=== PATIENT | female | born 1975 | race Two or more races ===

== ENCOUNTER 2018-09-22 09:21 | Inpatient (IN) | payer MEDICAID ==
[2018-09-15 12:27] LABS: APPEARANCE,URINE CLEAR; BILIRUBIN, URINE NEGATIVE (NEGATIVE); COLOR,URINE PALE YELLOW; GLUCOSE, URINE (UA) NEGATIVE (NEGATIVE); KETONES,URINE NEGATIVE (NEGATIVE); LEUKOCYTE ESTERASE ,URINE NEGATIVE (NEGATIVE); NITRITE,URINE NEGATIVE (NEGATIVE); PH,URINE 6 (4.5-8.0); PROTEIN,URINE NEGATIVE (NEGATIVE); UROBILINOGEN,URINE NORMAL MG/DL (0.0-1.0)
[2018-09-15 12:34] LABS: BASOPHILS % (AUTO) 0.7 % (0.0-2.0); EOSINOPHILS % (AUTO) 0.5 % (0.0-3.0); HEMATOCRIT 44.5 % (37.0-47.0); HEMOGLOBIN 14.9 G/DL (12.0-16.0); LYMPHOCYTES % (AUTO) 29.6 % (20.0-45.0); MEAN CORPUSCULAR VOLUME 82 FL (80-99); MONOCYTES % (AUTO) 4.1 % (1.0-10.0); NEUTROPHILS % (AUTO) 65.1 % (45.0-75.0); PLATELET COUNT 239 K/UL (150-450); RED BLOOD COUNT 5.43 M/UL (4.20-5.40); RED CELL DISTRIBUTION WIDTH 11.6 % (11.6-14.8); WHITE BLOOD COUNT 11.5 K/UL (4.8-10.8)
[2018-09-15 12:45] LABS: ANION GAP 7 mmol/L (5-15); BLOOD UREA NITROGEN 10 mg/dL (7-18); CALCIUM 9.6 MG/DL (8.5-10.1); CARBON DIOXIDE 28 MMOL/L (21-32); CHLORIDE 103 MMOL/L (98-107); CREATININE 0.6 MG/DL (0.55-1.30); SODIUM 138 MMOL/L (136-145)
--- NOTE | 2018-09-16 16:11 | Cardiology Report ---
APPROVED REPORT EKG Measurement Heart [id number] Normal sinus rhythm Normal ECG
--- NOTE | 2018-09-19 20:15 | Pre-op HX & Phy Repo 2 SIG ---
SCHEDULED FOR SURGERY: 09/22/2018. HISTORY OF PRESENT ILLNESS: The patient is a 43-year-old female in overall good health with invasive ductal carcinoma of the left breast. The patient presented recently for screening mammography, which revealed a suspicious mass of the left breast at 12 o'clock 7 cm from the nipple measuring 1.6 x 1.5 x 1.0 cm. It was not palpable. Core biopsy revealed invasive ductal carcinoma. The patient was seen by Oncology, who recommended no preoperative therapy. She is estrogen receptor and progesterone receptor positive and HER2 negative. The patient is scheduled to undergo left breast partial mastectomy with preop needle localization and left axillary lymph node biopsy. PAST MEDICAL HISTORY: None. MEDICATIONS: None. ALLERGIES: None. OPERATIONS: None. REVIEW OF SYSTEMS: Para 4, 4. PHYSICAL EXAMINATION: VITAL SIGNS: The patient is 5 feet 5 inches and 147 pounds. HEENT: Within normal limits. LUNGS: Clear. HEART: Regular rhythm. BREASTS: Reveals a questionable palpable mass in the left breast at 12 o'clock near the periphery. There is no palpable axillary or supraclavicular lymphadenopathy. ABDOMEN: Soft. PELVIC AND RECTAL: Per primary care physician. EXTREMITIES: Without edema. NEUROLOGIC: Physiologic. IMPRESSION: Invasive ductal carcinoma, left breast. PLAN: The patient is scheduled to undergo left breast partial mastectomy with preoperative needle localization and left axillary lymph node biopsy and I have had a full discussion with her regarding the nature of her condition, the nature of the surgery, indications, alternatives, options, and risks. I have discussed the risks of bleeding, infection, injury to adjacent structures or organs, need for additional procedures based on final pathology, need for additional treatment including radiation therapy to the breast and possible chemotherapy. I have discussed the potential for distortion and scarring of the breast and all questions have been answered. She understands and agrees to proceed. Sd aOtes M.D. DR: DYLAN JOB#: [id number] CC: NADEEM
[~2018-09-22] VITALS: Ht 157.5 cm; Wt 65.8 kg
[2018-09-22] VITALS (15 sets, daily range): BP systolic 109–128; BP diastolic 64–77
[~2018-09-22 09:21] MED LIST: NKM
--- NOTE | 2018-09-22 10:28 | Pre-Procedure Note/Attestation ---
Pre-Procedure Note/Attestation Complete Prior to Procedure Planned Procedure: left - left br Procedure Narrative: left breast partial mastectomy with pre-op needle localization and left axillary lymph node biopsy Indications for Procedure Pre-Operative Diagnosis: invasive ductal carcinoma left breast Attestation I attest that I discussed the nature of the procedure; its benefits; risks and complications; and alternatives (and the risks and benefits of such alternatives ), prior to the procedure, with the patient (or the patient's legal patient support representative). I attest that, if there was a reasonable possibility of needing a blood transfusion, the patient (or the patient's legal patient support representative) was given the [facility] standardized written summary, pursuant to the [place] Blood Safety Act ([place] Health and Safety Code # 1645, as amended). I attest that I re-evaluated the patient just prior to the surgery and that there has been no change in the patient's H&P, except as documented below:none Sd Oates MD Sep 22, 2018 10:28
[2018-09-22] MEDS ORDERED: Bacitracin 50000 Units Vial ONE (10:48)
[2018-09-22] MEDS ORDERED: Bupivacaine w/Epi 0.5% 30ml Vial INJ ONE (10:48)
[2018-09-22] MEDS ORDERED: Bacitracin Oint 15gm Tube TOPIC ONE (10:48)
[2018-09-22] MEDS ORDERED: Lidocaine 1% 10mg/ml/EPI 0.01mg/ml 50ml INJ ONE (10:48)
[2018-09-22] MEDS ORDERED: Propofol 200mg/20ml IV ONE (10:51)
[2018-09-22] MEDS ORDERED: fentaNYL 100 mcg/2 mL IV ONE (10:51)
[2018-09-22] MEDS ORDERED: Ketorolac 30mg Inj ONE (10:51)
[2018-09-22] MEDS ORDERED: Lidocaine 1% MPF 10mg/ml 5ml ONE (10:51)
[2018-09-22] MEDS ORDERED: Midazolam 2mg/2ml Inj ONE (10:51)
[2018-09-22] MEDS ORDERED: Metoclopramide 10mg/2ml Inj ONE (10:51)
[2018-09-22] MEDS ORDERED: Dexamethasone 4mg/ml vial ONE (10:51)
[2018-09-22] MEDS ORDERED: Sterile Water Irrig 1000ml IRRIG ONE (11:00)
[2018-09-22] MEDS ORDERED: NS Irrig 1000ml ONE (11:00)
[2018-09-22] MEDS ORDERED: LR 1000ml ONE (11:00)
[2018-09-22] MEDS ORDERED: LORazepam Inj 2mg/ml 1ml IV PRN (11:45)
[2018-09-22] MEDS ORDERED: Ketorolac 30mg Inj IV PRN (11:45)
[2018-09-22] MEDS ORDERED: DiphenhydrAMINE 50mg/ml Inj IVP PRN (11:45)
[2018-09-22] MEDS ORDERED: LR 1000ml 1,000 ML IVLG SCH (11:45)
[2018-09-22] MEDS ORDERED: Hydromorphone 0.5mg/0.5ml inj IVP PRN (11:45)
[2018-09-22] MEDS ORDERED: fentaNYL 100 mcg/2 mL IV PRN (11:45)
[2018-09-22] MEDS ORDERED: Midazolam 2mg/2ml Inj IVP PRN (11:45)
[2018-09-22] MEDS ORDERED: Metoclopramide 10mg/2ml Inj IVP PRN (11:45)
--- NOTE | 2018-09-22 11:45 | Anethesia Preoperative Eval ---
Anesthesia Pre-op PMH/ROS General Date of Evaluation: Sep 22, 2018 Anesthesiologist: Fazal ASA Score: ASA 3 Mallampati Score Class I : Soft palate, uvula, fauces, pillars visible Class II: Soft palate, uvula, fauces visible Class III: Soft palate, base of uvula visible Class IV: Only hard plate visible Mallampati Classification: Class II Surgeon: Иван Diagnosis: Left breast cancer Surgical Procedure: Left breast partial mastectomy, with lymph node biopsy Anesthesia History: none Family History: no anesthesia problems Allergies: Coded Allergies: No Known Allergies (Unverified , 09/21/18) Medications: see eMAR Patient NPO?: Yes NPO Date: Sep 21, 2018 NPO Time: 1900 Past Medical History Cardiovascular: Reports: other - HLD; Denies: HTN, CAD, [place], valve dz, arrhythmia Pulmonary: Denies: asthma, COPD, OSEI, other Gastrointestinal/Genitourinary: Denies: GERD, CRI, ESRD, other Neurologic/Psychiatric: Denies: dementia, CVA, depression/anxiety, TIA, other Endocrine: Denies: DM, hypothyroidism, steroids, other HEENT: Denies: cataract (L), cataract (R), glaucoma, [place] (L), [place] (R), other Hematology/Immune: Reports: other - LEft breast cancer; Denies: anemia, DVT, bleeding disorder Musculoskeletal/Integumentary: Denies: OA, RA, DJD, DDD, edema, other PSxH Narrative: bladder tumor excision Anesthesia Pre-op Phys. Exam Physician Exam Last Vital Signs Date Time Temp Pulse Resp B/P (MAP) Pulse Ox O2 Delivery O2 Flow Rate FiO2 09/22/18 10:03 Room Air 09/22/18 09:52 97.0 60 18 120/74 (89) 100 Constitutional: NAD Cardiovascular: RRR Respiratory: CTA Airway Exam Mallampati Score: Class II MO: full ROM: full Teeth: missing, intact Dentures: upper - partial Anesthesia Pre-op A/P Labs see chart Urine Test Test 09/22/18 09:35 Urine HCG, Qualitative Negative (NEGATIVE) Studies Pre-op Studies: EKG - sr Risk Assessment & Plan Assessment: ASA III Plan: GA Status Change Before Surgery: No Pre-Antibiotics Drug: Ancef 1g Given Within 1 Hr of Incision: Yes Mary Jennings MD Sep 22, 2018 11:45
[2018-09-22] MEDS ORDERED: NS Irrig 1000ml IRRIG ONE (12:00)
--- NOTE | 2018-09-22 13:02 | Brief Operative Note ---
Immediate Post Operative Note Operative Note Pre-op Diagnosis: invasive ductal carcinoma left breast Procedure: left breast partial mastectomy and left axillary lymph node biopsy Post-op Diagnosis: same Post-op Diagnosis: same as pre-op Findings: consistent w/pre-op dx studies Surgeon: jose Anesthesiologist: jason Anesthesia: general Specimen: yes - left breast cancer; left axillary lymph nodes Complications: none Condition: stable Fluids: see anesthesia record Estimated Blood Loss: minimal Drains: TIFFANIE Implant(s) used?: No Sd Oates MD Sep 22, 2018 13:02
--- NOTE | 2018-09-22 13:06 | Immediate Post-Op Evaluation ---
Immediate Post-Op Evalulation Immediate Post-Op Evalulation Procedure: Left breast partial mastectomy and lymph node biopsy Date of Evaluation: Sep 22, 2018 Time of Evaluation: 13:07 IV Fluids: 900 Blood Products: 0 Estimated Blood Loss: min Urinary Output: 0 Blood Pressure Systolic: 111 Blood Pressure Diastolic: 73 Pulse Rate: 81 Respiratory Rate: 16 O2 Sat by Pulse Oximetry: 100 Temperature (Fahrenheit): 97.4 Pain Score (1-10): 0 Nausea: No Vomiting: No Complications 0 Patient Status: awake, reacts, patent, none Hydration Status: adequate Drug: Ancef 1g Given Within 1 Hr of Incision: Yes Time Given: 11:20 Mary Jennings MD Sep 22, 2018 13:06
[2018-09-22] MEDS ORDERED: Norco 5mg/325mg tab ORAL PRN (13:15)
[2018-09-22] MEDS: HYDROmorphone 1mg/ml Carpuject SUBQ PRN (15:34)
[2018-09-22] MEDS ORDERED: ceFAZolin sod 1 GM in D5W 55 ML IV SCH (17:00)
[2018-09-22] MEDS: D5 1/2NS w/KCl 20mEq 1,000 ML IV SCH (17:25)
--- NOTE | 2018-09-22 19:15 | Operative Note - Dictated ---
DATE OF OPERATION: 09/22/2018 SURGEON: Sd Oates M.D. SENIOR ENGINEER: None. ANESTHESIOLOGIST: Dr. Diehl. TYPE OF ANESTHESIA: General endotracheal. PREOPERATIVE DIAGNOSIS: Invasive ductal carcinoma, left breast. POSTOPERATIVE DIAGNOSIS: Invasive ductal carcinoma, left breast. OPERATION PERFORMED: Left breast partial mastectomy with preoperative needle localization and left axillary lymph node biopsy. DESCRIPTION OF PROCEDURE: The patient was taken to the operating room and under general anesthesia with sequential compression device stockings in place, she was prepped and draped in usual fashion. The lesion was located at 12 o'clock, approximately 7 cm from the nipple in the left breast. It was vaguely palpable, but the wire localization had been performed for certainty. A transverse curvilinear upper breast incision was made achieving hemostasis with cautery. Flaps were dissected circumferentially. The quadrant of breast tissue was resected down to the pectoralis fascia achieving hemostasis with cautery and orienting the specimen with suture markers anterior, superior, and medial. Pathology examination revealed that the posterior deep margin was closed and additional tissue was excised. Hemostasis was achieved with cautery. The field was irrigated with antibiotic solution. The incision was closed with interrupted inverted 3-0 Vicryl deep dermal subcutaneous sutures and the skin closed with continuous 4-0 Monocryl subcuticular suture. Attention was directed to the left axilla where the transverse curvilinear left axillary incision was made achieving hemostasis with cautery. The clavipectoral fascia was incised. There were several enlarged lymph glands and the lower level dissection was performed using clips and cautery. The field was irrigated with antibiotic solution. Hemostasis was seen to be secured. Through a stab incision inferior and lateral, a 19 mm round Les drain was placed into the axilla and sutured to the skin with a 2-0 nylon skin suture. After ascertaining the hemostasis was secured and finding from the pathologist that initial assessment revealed no metastatic carcinoma, the incision was closed. The clavipectoral fascia was closed with interrupted 3-0 Vicryl, the subcutaneous tissues was closed with interrupted 3-0 Vicryl, and skin closed with continuous 4-0 Monocryl subcuticular suture. Tincture of benzoin and half-inch Steri-Strips were applied to both incisions followed by dry sterile dressing. Final sponge and needle counts were correct. A surgical brassiere was applied. The patient tolerated the procedure well and left the operating room in stable condition. Sd Oates M.D. DR: DARSHANA JOB#: [id number] CC:
[2018-09-22] MEDS: ceFAZolin sod 1 GM in D5W 55 ML IV SCH (20:43)
[2018-09-23 00:04] VITALS: BP 111/64
[2018-09-23] MEDS: D5 1/2NS w/KCl 20mEq 1,000 ML IV SCH (02:52)
[2018-09-23 04:00] VITALS: BP 107/64
[2018-09-23] MEDS: ceFAZolin sod 1 GM in D5W 55 ML IV SCH (04:09)
[2018-09-23] MEDS: HYDROmorphone 1mg/ml Carpuject SUBQ PRN (06:59)
[2018-09-23 08:00] VITALS: BP 114/67
--- NOTE | 2018-09-23 08:13 | General Progress Note ---
Progress Note Progress Note AVSS Had emesis last evening and required SQ Dilaudid for pain control Left breast and axilla incisions clean with intact steristrips TIFFANIE drain 10cc overnight Imp. N/V - resolved Pain control issue Plan: Maintain in hospital additional day Teach patient care of TIFFANIE drain Monitor for nausea/emesis and pain control po vs SQ Sd Oates MD Sep 23, 2018 08:13
[2018-09-23 12:00] VITALS: BP 123/68
--- NOTE | 2018-09-23 13:27 | 48 Hour Post Anesthesia Eval ---
Post Anesthesia Evaluation Procedure: Left breast partial mastectomy and lymph node biopsy Date of Evaluation: Sep 23, 2018 Time of Evaluation: 13:26 Blood Pressure Systolic: 128 0: 76 Pulse Rate: 68 Respiratory Rate: 22 Temperature (Fahrenheit): 97.6 O2 Sat by Pulse Oximetry: 98 Airway: patent Nausea: No Vomiting: No Pain Intensity: 1 Hydration Status: adequate Cardiopulmonary Status: stable Mental Status/LOC: patient returned to baseline Follow-up Care/Observations: n/a Post-Anesthesia Complications: none Follow-up care needed: ready to discharge Harjinder Bauer MD Sep 23, 2018 13:27
[2018-09-23 16:00] VITALS: BP 112/72
[2018-09-23 20:00] VITALS: BP 122/69
[2018-09-24] VITALS: BP 103/65
[2018-09-24 04:00] VITALS: BP 123/70
[2018-09-24 08:00] VITALS: BP 117/66
--- NOTE | 2018-09-24 09:08 | General Progress Note ---
Progress Note Progress Note Doing well now with no further emesis and tolerating po analgesics left breast and axilla healing nicely TIFFANIE 40cc Imp. Improved Plan: Discharge with full supplies/limitations/instructions provided/discussed Rx Ira 5/325 @20 f/u office 09/28 Sd Oates MD Sep 24, 2018 09:08
[2018-09-24] MEDS ORDERED: Flu Vaccine (Alfuria) for Pts Less than 65 Years old IM ONE (11:00)
--- NOTE | 2018-09-26 11:14 | Discharge Summary ---
Discharge Summary Hospital Course Date of Admission Sep 22, 2018 at 14:00 Date of Discharge Sep 24, 2018 at 11:58 Admitting Diagnosis invasive left ductal breast carcinoma Reason for Hospitalization: elective surgery HPI Pao Hammer is a 43 year old female who was admitted on Sep 22, 2018 at 14:00 for invasive left ductal breast carcinoma. Patient was admitted for elective surgery. Procedures s/p 09/22/[address] Oates Left breast partial mastectomy with preoperative needle localization and left axillary lymph node biopsy. Hospital Course s/p surgery initially emesis, a/emetic provided prn pain management addressed, d pain controlled left breast and axilla incisions clean with intact steri-strips TIFFANIE drain output closely monitored 10cc overnight patient was instructed on care of TIFFANIE drain at home emesis resolved next day patient clinically improved and was stable for discharge discharge instructions provided script for analgesic provided patient to follow up with surgeon 09/28/18 at office as outpatient w follow up with biopsy results FINAL DIAGNOSES Invasive ductal carcinoma, left breast. s/p Left breast partial mastectomy with preoperative needle localization and left axillary lymph node biopsy. Discharge Condition Upon Discharge: stable Discharge Disposition Patient was discharged to Home () Discharge Instructions Discharge Instructions Special Instructions I have been assigned to complete a D/C Summary on this account. I was not involved in the patient management Breanna Howell NP Sep 26, 2018 11:14
== END 2018-09-24 11:58 | disposition home or self-care (01) | DRG 363 ==
LOC: CAR 09:21 → 3E 14:00
PROC: 07B60ZX Excision of Left Axillary Lymphatic, Open Approach, Diagnostic (ICD-10-PCS; 2018-09-22)
PROC: 0HBU0ZZ Excision of Left Breast, Open Approach (ICD-10-PCS; principal; 2018-09-22 11:00)
DX: C50.812 Malignant neoplasm of overlapping sites of left female breast (principal); R11.11 Vomiting without nausea; Z17.0 Estrogen receptor positive status [ER+]
CPT/HCPCS: 36415; 80048; 81003; 81025; 85025; 85610; 85730; 90686; 93005; 94003; 94150; J2250; J2405; J2765